=== PATIENT | female | born 1950 | race Caucasian/White ===

== ENCOUNTER 2020-07-23 05:25 | Day surgery (SDC) | payer OTHER ==
--- OUTSIDE RECORDS SUMMARY | 2020-07-10 11:58 | XMS ---
:1950 Author Organization [facility] Care Team Providers Name Role Phone Yobany Richmond Unavailable Richmond Haywood Unavailable [phone] Richmond Haywood Unavailable [phone] AIRAM SCHILLING Unavailable Unavailable GENIE GAMA Unavailable Unavailable Re-disclosure Warning The records that you are about to access may contain information from federally- assisted alcohol or drug abuse programs. If such information is present, then the following federally mandated warning applies: This information has been disclosed to you from records protected by federal confidentiality rules (42 CFR part 2). The federal rules prohibit you from making any further disclosure of this information unless further disclosure is expressly permitted by the written consent of the person to whom it pertains or as otherwise permitted by 42 CFR part 2. A general authorization for the release of medical or other information is NOT sufficient for this purpose. The Federal rules restrict any use of the information to criminally investigate or prosecute any alcohol or drug abuse patient.The records that you are about to access may contain highly sensitive health information, the redisclosure of which is protected by Article 27-F of the [facility] Public Health law. If you continue you may haveaccess to information: Regarding HIV / AIDS; Provided by facilities licensed or operated by the [facility] Office of Mental Health; or Provided by the [facility] Office for People With Developmental Disabilities. If such information is present, then the following [facility] mandated warning applies: This information has been disclosed to you from confidential records which are protected by state law. State law prohibits you from making any further disclosure of this information without the specific written consent of the person to whom it pertains, or as otherwise permitted by law. Any unauthorized further disclosure in violation of state law may result in a fine or senior care sentence or both. A general authorization for the release of medical or other information is NOT sufficient authorization for further disclosure. Allergies and Adverse Reactions Type Description Substance Reaction Status Data Source(s ) No Known No Known Allergies No Known eCW3 ( [place] Allergies Allergies [facility]) No Known No Known Allergies No Known eCW3 ( [place] Allergies Allergies [facility]) No Known No Known Allergies No Known eCW3 ( [place] Allergies Allergies [facility]) No Known No Known Allergies No known eCW3 ( [place] [facility]) No Known No Known Allergies No known eCW3 ( [place] Allergies allergies [facility]) No Known No Known Allergies No known eCW3 ( [place] Allergies allergies [facility] Care) Encounters Encounter Providers Location Date Indications Data Source(s ) Attender: Richmond 07/03/2020 MED GEN ([facility] 12:00:00 AM Medical, PC) EDT Office Outpatient Attender: GENIE Gunn 06/19/2019 [facility] ALFARO 01:10:00 PM [facility] GENIEAdmitter: GENIE PRESCOTTReferrer: AIRAM ALEGRIA Outpatient [facility] 05/10/2019 eCW3 ([facility] 12:00:[address] [facility] 05/10/2019 Care) 12:00:00 AM EDT Outpatient [facility] 02/15/2019 eCW3 ([facility] 12:00:[address] [facility] 02/15/2019 Care) 12:00:00 AM EDT Outpatient [facility] 12/28/2018 eCW3 ([facility] A28 12:00:[address] [facility] 12/28/2018 Care) 12:00:00 AM EDT Outpatient [facility] 12/16/2018 eCW3 ([facility] A28 12:00:[address] [facility] 12/16/2018 Care) 12:00:00 AM EST Outpatient [facility] 12/07/2018 eCW3 ([facility] A28 12:00:[address] [facility] 12/07/2018 Care) 12:00:00 AM EST Emergency H 12/04/2018 [facility] 09:41:00 AM EST Medical C enter Outpatient [facility] 11/30/2018 eCW3 ([facility] A28 12:00:[address] [facility] 11/30/2018 Care) 12:00:00 AM EST Medications Medication Brand Start Product Dose Route Administrative Pharmacy [facility] Indications Reaction Description Data Name Date Form Instructions Instructions Source(s) Amlodipine AMLODI 07/03/ TABLET 30 complet AMLOD IPINE MEDGEN (St 5 MG Oral PINE:1 2019 ed [facility] Tablet 90818 12:00: Medical, AMLODIPINE: 00 AM PC) [id number] EDT Bisacodyl 5 DULCOL 07/03/ DELAYED 6 complet DUL COLAX MEDGEN (St MG Delayed AX 2020 RELEASE ed LAXATIVE [facility] Release LAXATI 12:00: TABLET Medica l, Oral Tablet VE:209 00 AM PC) [Dulcolax] 613 EDT DULCOLAX LAXATIVE:20 9613 24 HR METOPR 07/03/ TABLET, 30 complet METOPROLO L MEDGEN (St metoprolol OLOL:8 2019 EXTENDED ed [facility] n's succinate 45973 12:00: RELEASE Medi brian, 25 MG 00 AM PC) Extended EDT Release Oral Tablet METOPROLOL: [id number] POLYETHYLEN GOLYTE 07/03/ POWDER 30 complet GOLY TELY MEDGEN (St E GLYCOL LY:966 2020 FOR ed [facility] 3350 60 916 12:00: RECONSTI Medica l, MG/ML / 00 AM TUTION PC) Potassium EDT Chloride 0.01 MEQ/ML / Sodium Bicarbonate 0.02 MEQ/ML / Sodium Chloride 0.025 MEQ/ML / sodium sulfate 0.04 MEQ/ML Oral Solution [Golytely] GOLYTELY:96 6916 Simvastatin SIMVAS 07/03/ TABLET 30 complet SIMV ASTATIN MEDGEN (St 40 MG Oral TATIN: 2020 ed [facility] Tablet [id number] 12:00: Medical, SIMVASTATIN 00 AM PC) :[id number] EDT Blood Blood 03/12/ active Blood eCW3 Pressure Pressu 2019 Pressure Kit ( [place] Kit - re Kit 12:00: - [place] - 00 AM Health EDT Care) Amoxicillin Amoxic .0 active Amoxici llin- eCW3 875 MG / illin- 2019 {tabl Pot ([place] Clavulanate Pot 12:00: et_wi Clavulanat e [place] 125 MG Oral Clavul 00 AM th_fo 875-125 M G Health Tablet anate EST od} Care) Amoxicillin 875-12 -Pot 5 MG Clavulanate 875-125 MG levocetiriz Levoce 12/12/ active Levocet irizi eCW3 ine tirizi 2020 ne ([place] dihydrochlo ne 12:00: Dihydrochlo r [place] ride 5 MG Dihydr 00 AM cleopatra 5 MG Hea lth Oral Tablet ochlor EST Care) Levocetiriz cleopatra 5 ine MG Dihydrochlo ride 5 MG Azelastine Azelas .0 active Azelasti ne eCW3 HCl 0.1 % soila 2019 {puff HCl 0.1 % ([facility] HCl 12:00: _in_e [place] 0.1 % 00 AM ach_n Health EST ostri Care) l} Acetaminoph Excedr 2.0 active Excedri n eCW3 en 250 MG / in 2018 {tabl Migraine ([facility] Aspirin 250 Migrai 12:00: ets} 250-250-6 5 [facility] MG / ne 00 AM MG Health Caffeine 65 250-25 EDT Care) MG Oral 0-65 Tablet MG [Excedrin] Excedrin Migraine 250-250-65 MG Aspirin 81 Aspiri 1.0 active Aspirin 81 eCW3 MG Delayed n 81 2018 {tabl 81 mg ([place] Release 81 mg 12:00: et} [place] Oral Tablet 00 AM Health Aspirin 81 EDT Care) 81 mg Blood Press Blood 12/07/ active Blood Pr ess eCW3 Monitor/M-L Press 2019 Monitor/M-L ([place] Cuff - Monito 12:00: Cuff - [place] r/M-L 00 AM Health Cuff - EST Care) Blood Press Blood 12/07/ active Blood Pr ess eCW3 Monitor/M-L Press 2019 Monitor/M-L ([place] Cuff - [place] 12:00: Cuff - [place] r/M-L 00 AM Health Cuff - EST Care) Blood Press Blood 12/07/ active Blood Pr ess eCW3 Monitor/M-L Press 2019 Monitor/M-L ([place] Cuff - [place] 12:00: Cuff - [place] r/M-L 00 AM Health Cuff - EST Care) Blood Press Blood 12/07/ active Blood Pr ess eCW3 Monitor/M-L Press 2019 Monitor/M-L ([place] Cuff - [place] 12:00: Cuff - [place] r/M-L 00 AM Health Cuff - EST Care) Blood Press Blood 12/07/ active Blood Pr ess eCW3 Monitor/M-L Press 2019 Monitor/M-L ([place] Cuff - [place] 12:00: Cuff - [place] r/M-L 00 AM Health Cuff - EST Care) Blood Press Blood 12/07/ active Blood Pr ess eCW3 Monitor/M-L Press 2019 Monitor/M-L ([place] Cuff - [place] 12:00: Cuff - [place] r/M-L 00 AM Health Cuff - EST Care) 24 HR Toprol .0 active Toprol XL 25 eCW3 metoprolol XL 2017 {tabl MG ([place] succinate MG 12:00: et} [place] 25 MG 00 AM Health Extended EDT Care) Release Oral Tablet [Toprol] Toprol XL 25 MG 24 HR Toprol .0 active Toprol XL 25 eCW3 metoprolol XL 2017 {tabl MG ([place] succinate MG 12:00: et} [place] 25 MG 00 AM Health Extended EDT Care) Release Oral Tablet [Toprol] Toprol XL 25 MG 24 HR Toprol .0 active Toprol XL 25 eCW3 metoprolol XL 2017 {tabl MG ([place] succinate MG 12:00: et} [place] 25 MG 00 AM Health Extended EDT Care) Release Oral Tablet [Toprol] Toprol XL 25 MG Simvastatin Zocor .0 active Zocor 40 MG eCW3 40 MG Oral 40 MG 2017 {tabl ([place] Tablet 12:00: et_in [place] [Zocor] 00 AM _the_ Health Zocor 40 MG EDT eveni Care) ng} Simvastatin Zocor .0 active Zocor 40 MG eCW3 40 MG Oral 40 MG 2018 {tabl ([place] Tablet 12:00: et_in [place] [Zocor] 00 AM _the_ Health Zocor 40 MG EDT eveni Care) ng} Simvastatin Zocor .0 active Zocor 40 MG eCW3 40 MG Oral 40 MG 2018 {tabl ([place] Tablet 12:00: et_in [place] [Zocor] 00 AM _the_ Health Zocor 40 MG EDT eveni Care) ng} Simvastatin Zocor 1.0 active Zocor 40 M G eCW3 40 MG Oral 40 MG {tabl ([place] Tablet et_in [place] [Zocor] _the_ [facility] Zocor 40 MG eveni Care) ng} 24 HR Toprol 1.0 active Toprol XL 25 eC W3 metoprolol XL 25 {tabl MG ([place] succinate MG et} [place] 25 MG Health Extended Care) Release Oral Tablet [Toprol] Toprol XL 25 MG Aspirin 81 Aspiri 1.0 active Aspirin 81 eCW3 MG Delayed n 81 {tabl 81 mg ([place] Release 81 mg et} [place] Oral Tablet Health Aspirin 81 Care) 81 mg 24 HR Toprol 1.0 active Toprol XL 25 eC W3 metoprolol XL 25 {tabl MG ([place] succinate MG et} [place] 25 MG Health Extended Care) Release Oral Tablet [Toprol] Toprol XL 25 MG 24 HR Toprol 1.0 active Toprol XL 25 eC W3 metoprolol XL 25 {tabl MG ([place] succinate MG et} [place] 25 MG Health Extended Care) Release Oral Tablet [Toprol] Toprol XL 25 MG Simvastatin Zocor 1.0 active Zocor 40 M G eCW3 40 MG Oral 40 MG {tabl ([place] Tablet et_in [place] [Zocor] _the_ Health Zocor 40 MG eveni Care) ng} Aspirin 81 Aspiri 1.0 active Aspirin 81 eCW3 MG Delayed n 81 {tabl 81 mg ([place] Release 81 mg et} [place] Oral Tablet Health Aspirin 81 Care) 81 mg Aspirin 81 Aspiri 1.0 active Aspirin 81 eCW3 MG Delayed n 81 {tabl 81 mg ([place] Release 81 mg et} [place] Oral Tablet Health Aspirin 81 Care) 81 mg Simvastatin Zocor 1.0 active Zocor 40 M G eCW3 40 MG Oral 40 MG {tabl ([place] Tablet et_in [place] [Zocor] _the_ Health Zocor 40 MG eveni Care) ng} Amlodipine Amlodi 1.0 active Amlodipine eCW3 5 MG Oral pine {tabl Besylate 5 (Hu dson Tablet Besyla et} MG [place] Amlodipine te 5 Health Besylate 5 MG Care) MG Insurance Providers Payer name Policy type Policy ID Covered Covered green party's Policy P juliana / Coverage green party ID relationship to [place] Inf ormation type richardson MEDICAID OF [id number] [facility] [id number] CLAIMS DC MEDICARE [id number] PART B [facility] MEDICAID [id number] SP [id number] UNHC DC DUAL [id number] SP [id number] COMPLETE [place] [id number] 01 [id number] HEALTHCARE MCARE OPD W [id number] ISMA W [id number] 01 [id number] [place] O [id number] 01 [id number] HEALTHCARE MCARE OPD [place] [facility] [id number] S [id number] [place] Medicaid [id number] S [id number] Regular Clinic Visit Dental [id number] S [id number] Dentaquest MKD Elio Vision [id number] S [id number] Isma Family [id number] S [id number] Planning MKD & EP 3 & 4 Only Problems, Conditions, and Diagnoses Code Display Name Description Problem Type Effective Data Dates Source(s) Z86.010 Personal history PERSONAL HISTORY Problem 07/03/2020 ME DGEN (St of colonic polyps OF COLONIC POLYPS 12:00:00 AM [facility], ) K63.5 Polyp of colon, Polyp of colon, Problem 08/23/2019 eCW3 ([place] unspecified part unspecified part 12:00:00 AM edy Health of colon, of colon, EST Care) unspecified type unspecified type G44.229 Chronic Chronic Problem 05/10/2019 eCW3 ([place] tension-type tension-type 12:00:00 AM [facility] lt headache, not headache, not EDT Care) intractable intractable G44.229 Chronic Chronic Problem 05/10/2019 eCW3 ([place] tension-type tension-type 12:00:00 AM [facility] headache, not headache, not EDT Care) intractable intractable M25.511 Pain in right Pain in right Problem 02/15/2019 eCW3 ([facility] shoulder shoulder 12:00:00 AM [facility] EDT Care) Z78.9 Uses Surinamese as Uses Surinamese as Problem 02/15/2019 eCW3 ([place] primary spoken primary spoken 12:00:00 [facility] EDT Care) M25.511 Pain in right Pain in right Problem 02/15/2019 eCW3 ([facility] shoulder shoulder 12:00:00 AM [facility] EDT Care) M25.511 Pain in right Pain in right Problem 02/15/2019 eCW3 ([facility] shoulder shoulder 12:00:00 AM [facility] EDT Care) Z78.9 Uses Surinamese as Uses Surinamese as Problem 02/15/2019 eCW3 ([place] primary spoken primary spoken 12:00:00 AM [facility] language language EDT Care) A63.0 Anogenital warts High risk HPV Problem 12/09/2018 eCW3 ([place] infection 12:00:00 AM [facility] EST Care) A63.0 Anogenital warts High risk HPV Problem 12/09/2018 eCW3 ([place] infection 12:00:00 AM [facility] EST Care) A63.0 Anogenital warts High risk HPV Problem 12/09/2018 eCW3 ([place] infection 12:00:00 AM [facility] EST Care) A63.0 Anogenital warts High risk HPV Problem 12/09/2018 eCW3 ([place] infection 12:00:00 AM [facility] EST Care) I10 Essential Essential Problem 11/30/2018 eCW3 ([place] hypertension hypertension 12:00:00 AM [facility] EST Care) I10 Essential Essential Problem 11/30/2018 eCW3 ([place] hypertension hypertension 12:00:00 AM [facility] EST Care) N39.41 Urge incontinence Urge incontinence Problem 12/18/2016 eCW3 ([place] of urine of urine 12:00:00 [facility] EST Care) N39.41 Urge incontinence Urge incontinence Problem 12/18/2016 eCW3 ([place] of urine of urine 12:00:00 [facility] EST Care) K76.0 Fatty liver Fatty liver Problem 12/05/2016 eCW3 ([place] 12:00:00 AM [facility] EST Care) R31.29 Microscopic Microscopic Problem 12/05/2016 eCW3 ([place] hematuria hematuria 12:00:00 AM [facility] EST Care) R31.29 Microscopic Microscopic Problem 12/05/2016 eCW3 ([place] hematuria hematuria 12:00:00 AM [place] [facility] EST Care) K76.0 Fatty liver Fatty liver Problem 12/05/2016 eCW3 ([place] 12:00:00 [facility] EST Care) R35.1 Nocturia Nocturia Problem 12/04/2016 eCW3 ([place] 12:00:00 [facility] EST Care) R35.1 Nocturia Nocturia Problem 12/04/2016 eCW3 ([place] 12:00:00 [facility] EST Care) R35.1 Nocturia Nocturia Problem 12/04/2016 eCW3 ([place] 12:00:00 [facility] EST Care) M54.16 Lumbar Lumbar Problem 08/02/2015 eCW3 ([place] radiculopathy radiculopathy 12:00:00 [facility] M54.16 Lumbar Lumbar Problem 08/02/2015 eCW3 ([place] radiculopathy radiculopathy 12:00:00 AM [facility]) M54.16 Lumbar Lumbar Problem 08/02/2015 eCW3 ([place] radiculopathy radiculopathy 12:00:00 AM [facility]) M54.16 Lumbar Lumbar Problem 08/02/2015 eCW3 ([place] radiculopathy radiculopathy 12:00:00 AM [facility]) E55.9 Vitamin D Vitamin D Problem 07/26/2015 eCW3 ([place] deficiency deficiency 12:00:00 [facility] EDT [facility]) E78.5 Dyslipidemia Dyslipidemia Problem 07/26/2015 eCW3 ([facility] EDT Care) M85.80 Osteopenia Osteopenia Problem 07/26/2015 eCW3 ([place] 12:00:00 [facility] EDT Care) M85.80 Osteopenia Osteopenia Problem 07/26/2015 eCW3 ([place] 12:00:00 [facility] EDT Care) E55.9 Vitamin D Vitamin D Problem 07/26/2015 eCW3 ([place] deficiency deficiency 12:00:00 AM [facility] EDT Care) E78.5 Dyslipidemia Dyslipidemia Problem 07/26/2015 eCW3 ([facility] 12:[facility] EDT Care) E78.5 Dyslipidemia Dyslipidemia Problem 07/26/2015 eCW3 ([facility] 12:[facility] EDT Care) M85.80 Osteopenia Osteopenia Problem 07/26/2015 eCW3 ([place] 12:00:00 [facility] EDT Care) E55.9 Vitamin D Vitamin D Problem 07/26/2015 eCW3 ([place] deficiency deficiency 12:00:00 AM [facility] EDT Care) M25.511 Pain in right PAIN IN RIGHT Diagnosis 06/19/2019 [facility] shoulder SHOULDER 01:10:00 PM Medical EDT Center H57.10 Ocular pain, OCULAR PAIN, Diagnosis 12/04/2018 [facility] unspecified eye UNSPECIFIED EYE 09:41:00 AM Med ical EST Center H57.11 Ocular pain, right OCULAR PAIN, RIGHT Diagnosis 9 [facility] eye EYE 09:41:00 AM Medical EST Center R40.2410 Steve coma scale STEVE COMA SCALE Diagnosis 9 [facility] score 13-15, SCORE 13-15, 09:41:00 AM Medical unspecified time UNSPECIFIED TIME EST Ce nter I10 Essential ESSENTIAL Diagnosis 12/04/2018 [facility] (primary) (PRIMARY) 09:41:00 AM Medical hypertension HYPERTENSION EST Center Surgeries/Procedures Procedure Description Date Indications Data Source(s) Documentation of current 07/03/2020 MED GEN ([facility] medications (procedure) 12:00:00 AM EDT [facility]) OFFICE OUTPATIENT NEW 30 07/03/2020 MED GEN ([facility] MINUTES 12:00:00 AM EDT Medical, PC) Results ID Date Data Source [id number] 06/27/2020 09:28:00 PM EDT [facility] Name Value Range Interpretation Code Description Data Kari rce(s) Supporting Document(s ) SARS-COV-2 [facility] This lab was ordered by [facility] and reported by [facility]. ID Date Data Source [id number] 05/31/2020 04:08:00 PM EDT [facility] Name Value Range Interpretation Code Description Data Kari rce(s) Supporting Document(s ) SARS-CoV-2 [facility] PCR This lab was ordered by [facility] and reported by [facility]. ID Date Data Source [id number] 04/23/2020 10:15:00 PM EDT [facility] Name Value Range Interpretation Code Description Data Kari rce(s) Supporting Document(s ) SARS-COV-2 [facility] This lab was ordered by [facility] and reported by [facility]. Procedure Social History Code Duration Value Status Description Data Source(s ) Smoking 07/03/2020 Born in [facility] completed Born in [facility] MEDGEN (St 12:00:00 AM EDT [place]ame [place] [facility] [place] Non Non Smokers Non Smokers Non Drinker No Drug Drinker No Drug use use Smoking 07/03/2020 Unknown if ever completed Unknown if ever MEDG EN (St 12:00:00 AM EDT smoked smoked [facility] jennifer, ) Smoking 03/12/2020 Never Smoker completed Never Smoker eCW3 ([facility] 12:00:00 AM EDT [facility]) Smoking 12/16/2019 Never Smoker completed Never Smoker eCW3 ([facility] 12:00:00 AM EST [facility]) Smoking 05/10/2019 Never Smoker completed Never Smoker eCW3 ([facility] 12:00:00 AM T [facility]) Smoking 02/15/2019 Never Smoker completed Never Smoker eCW3 ([facility] 12:00:00 AM [facility]) Smoking 12/28/2018 Never Smoker completed Never Smoker eCW3 ([facility] 12:00:00 AM [facility]) Smoking 12/28/2018 Never Smoker completed Never Smoker eCW3 ([facility] 12:00:00 AM EDT [facility]) Smoking 12/04/2018 Denies Ever completed Denies Ever Smoked [facility] 11:19:00 AM EST Smoked Medical C enter Smoking 12/04/2018 Denies Ever completed Denies Ever Smoked [facility] 09:45:00 AM EST Smoked Medical C enter Smoking Unknown if ever completed Unknown if ever Ashely romelia [facility] smoked smoked [facility] Never Smoker completed Never Smoker eCW3 ([facility]) Never Smoker completed Never Smoker eCW3 ([facility]) Never Smoker completed Never Smoker eCW3 ([facility]) Never Smoker completed Never Smoker eCW3 ([facility]) Never Smoker completed Never Smoker eCW3 ([facility]) Never Smoker completed Never Smoker eCW3 ([facility]) Vital Signs ID Date Data Source UNK Name Value Range Interpretation Code Description Data Source(s) Heart rate 76 /min 76 /min MEDGEN ([facility] , ) Inhaled oxygen 98 % 98 % MEDGEN ([facility], ) Body mass index 28.9 kg/m2 28.9 kg/m2 MEDGEN (S (BMI) [Ratio] [facility]) Diastolic blood 68 mm[Hg] 68 mm[Hg] MEDGEN ([facility]) Systolic blood 122 mm[Hg] 122 mm[Hg] MEDGEN ([facility]) Body weight 163 lb 163 lb MEDGEN ([facility]) Body height 63 in 63 in MEDGEN ([facility]) Diastolic blood 73 mm[Hg] 73 mm[Hg] eCW3 ([facility]) Systolic blood 124 mm[Hg] 124 mm[Hg] eCW3 ([facility]) Body temperature 98.2 [degF] 98.2 [degF] eCW3 ( [facility]) Body mass index 27.28 kg/m2 27.28 kg/m2 eCW3 (H ud[facility] (BMI) [Ratio] [facility]) Body weight 154 [lb_av] 154 [lb_av] eCW3 ([facility]) Body height 63 [in_i] 63 [in_i] eCW3 ([facility]) Diastolic blood 59 mm[Hg] 59 mm[Hg] eCW3 ([facility]) Systolic blood 121 mm[Hg] 121 mm[Hg] eCW3 ([facility]) Body temperature 98.0 [degF] 98.0 [degF] eCW3 ( [facility]) Body mass index 26.75 kg/m2 26.75 kg/m2 eCW3 ([facility] ud[facility] (BMI) [Ratio] [facility]) Body weight 151 [lb_av] 151 [lb_av] eCW3 ([facility]) Body height 63 [in_i] 63 [in_i] eCW3 ([facility]) Diastolic blood 76 mm[Hg] 76 mm[Hg] eCW3 ([facility]) Systolic blood 137 mm[Hg] 137 mm[Hg] eCW3 ([facility]) Body temperature 98.5 [degF] 98.5 [degF] eCW3 ( [facility]) Heart rate 20 /min 20 /min eCW3 ([facility]) Body mass index 27.35 kg/m2 27.35 kg/m2 eCW3 ([facility] (BMI) [Ratio] [facility]) Body weight 154.4 154.4 [lb_av] eCW3 ([facility] on [lb_av] [facility]) Body height 63 [in_i] 63 [in_i] eCW3 ([facility]) Diastolic blood 81 mm[Hg] 81 mm[Hg] eCW3 ([facility]) Systolic blood 144 mm[Hg] 144 mm[Hg] eCW3 ([facility]) Body temperature 98.2 [degF] 98.2 [degF] eCW3 ( [facility]) Heart rate 20 /min 20 /min eCW3 ([facility]) Body mass index 27.77 kg/m2 27.77 kg/m2 eCW3 ([facility] (BMI) [Ratio] [facility]) Body weight 156.8 156.8 [lb_av] eCW3 ([facility] on [lb_av] [facility]) Body height 63 [in_i] 63 [in_i] eCW3 ([facility]) Diastolic blood 68 mm[Hg] 68 mm[Hg] eCW3 ([facility]) Systolic blood 134 mm[Hg] 134 mm[Hg] eCW3 ([facility]) Body temperature 97.8 [degF] 97.8 [degF] eCW3 ( [facility]) Body mass index 27.67 kg/m2 27.67 kg/m2 eCW3 (H udson (BMI) [Ratio] [facility]) Body weight 156.2 156.2 [lb_av] eCW3 ([facility] on [lb_av] [facility]) Body height 63 [in_i] 63 [in_i] eCW3 ([facility]) Body mass index 25.6 kg/m2 25.6 kg/m2 [facility] (BMI) [Ratio] Medical [facility] ter Systolic blood 138 mm[Hg] 138 mm[Hg] [facility] Diastolic blood 79 mm[Hg] 79 mm[Hg] [facility] Body height 165.089341 165.906676 cm [facility] [facility] Heart rate 76 /min 76 /min [facility] Oxygen saturation 98 % 98 % [facility] Arterial blood [facility] by Pulse oximetry Respiratory rate 17 /min 17 /min [facility] Body temperature 36.945834 36.282042 [facility] Body weight 70.578106 70.799421 kg [facility] hs Measured kg [facility] Diastolic blood 78 mm[Hg] 78 mm[Hg] eCW3 ([facility]) Systolic blood 150 mm[Hg] 150 mm[Hg] eCW3 ([facility]) Body temperature 98.0 [degF] 98.0 [degF] eCW3 ( [facility]) Body mass index 27.63 kg/m2 27.63 kg/m2 eCW3 ([facility] (BMI) [Ratio] [facility]) Body weight 156 [lb_av] 156 [lb_av] eCW3 ([facility]) Body height 63 [in_i] 63 [in_i] eCW3 ([facility]) Patient Treatment Plan of Care Planned Activity Planned Date Details Description Data Source (s) Blood Pressure Kit - 03/12/2020 eCW3 ([place] 12:00:00 AM [facility]) Azelastine HCl 0.1 % 12/13/2019 eCW3 ([place] 12:00:00 AM [facility]) levocetirizine 12/13/2019 eCW3 ([place] dihydrochloride 5 MG Oral 12:00:00 AM [facility]) Tablet Amoxicillin 875 MG / 12/13/2019 [facility] Clavulanate 125 MG Oral 12:00:00 AM [facility]) Tablet Acetaminophen 250 MG / 05/10/2019 eCW3 ([place] Aspirin 250 MG / Caffeine 12:00:00 AM [facility]) 65 MG Oral Tablet [Excedrin] Aspirin 81 MG Delayed 02/15/2019 eCW3 ( [place] Release Oral Tablet 12:00:00 AM [facility]) Simvastatin 40 MG Oral 04/20/2018 eCW3 ([place] Tablet [Zocor] 12:00:00 AM [facility] e) 24 HR metoprolol succinate 04/20/2018 e CW3 ([place] 25 MG Extended Release Oral 12:00:00 AM [facility]) Tablet [Toprol] 24 HR metoprolol succinate 04/20/2018 e CW3 ([place] 25 MG Extended Release Oral 12:00:00 AM [facility]) Tablet [Toprol] Aspirin 81 MG Delayed eCW3 ( [place] Release Oral Tablet Health C are) 24 HR metoprolol succinate e CW3 ([place] 25 MG Extended Release [facility]) Tablet [Toprol] Amlodipine 5 MG Oral Tablet eCW3 ([facility]) Simvastatin 40 MG Oral eCW3 ([place] Tablet [Zocor] Health Care) Simvastatin 40 MG Oral eCW3 ([place] Tablet [Zocor] Health Care) 24 HR metoprolol succinate e CW3 ([place] 25 MG Extended Release [facility]) Tablet [Toprol] Aspirin 81 MG Delayed eCW3 ( [place] Release Oral Tablet Health C are)
[2020-07-17 15:02] VITALS: BMI 28.8
--- OUTSIDE RECORDS SUMMARY | 2020-07-23 05:28 | XMS ---
:1950 Author Organization [facility] Care Team Providers Name Role Phone Manuel Haywooder Unavailable [phone] DiGdebrano, Christopher Unavailable [phone] DiGguille, Christopher Unavailable [phone] AIRAM WATSON Unavailable Unavailable GENIE GAMA Unavailable Unavailable Re-disclosure [...] is protected by Article 27-F of the [place] State Public Health law. If you continue you may haveaccess to information: Regarding HIV / AIDS; Provided by facilities licensed or operated by the [facility] Office of Mental Health; or Provided by the [facility] Office for People With Developmental Disabilities. If such information is present, then the following [facility] mandated warning applies: This information has [...] law may result in a fine or group home sentence or both. A general authorization for the release of medical or other information is NOT sufficient authorization for further disclosure. Encounters Encounter Providers Location Date Indications Data Source(s ) Attender: [place] 07/03/2020 MED GEN ([facility] 12:00:00 AM Medical, ) EDT Office Outpatient [facility] 08/23/2019 12:00:00 e CW3 ([facility] A28 AM EST - 08/23/2019 [facility] 12:00:00 AM EST Care) Outpatient Attender: GENIE Gunn 06/19/2019 01:10:00 [facility] EDT Medical Andreas PRESCOTTAdmitter: GENIE PRESCOTTReferrer: AIRAM WATSON Medications Medication Brand Start Product Dose Route Administrative Pharmacy [facility] Indications Reaction Description Data Name Date Form Instructions Instructions Source(s) 24 HR METOPR 07/03/ TABLET, 30 complet METOPROLO L MEDGEN (St metoprolol OLOL:8 2019 EXTENDED ed [facility] n's succinate 10553 12:00: RELEASE Medi brian, 25 MG 00 AM ) Extended EDT Release Oral Tablet METOPROLOL: [id number] POLYETHYLEN GOLYTE 07/03/ POWDER 30 complet GOLY TELY MEDGEN (St E GLYCOL LY:966 2019 FOR ed [facility] 3350 60 916 12:00: RECONSTI Medica l, MG/ML / 00 AM TUTION PC) Potassium EDT Chloride 0.01 MEQ/ML / Sodium Bicarbonate 0.02 MEQ/ML / Sodium Chloride 0.025 MEQ/ML / sodium sulfate 0.04 MEQ/ML Oral Solution [Golytely] GOLYTELY:96 6916 Simvastatin SIMVAS 09/23/ TABLET 30 complet SIMV ASTATIN MEDGEN (St 40 MG Oral TATIN: 2020 ed [facility] Tablet [id number] 12:00: Medical, SIMVASTATIN 00 AM PC) :[id number] EDT Amlodipine AMLODI 07/03/ TABLET 30 complet AMLOD IPINE MEDGEN (St 5 MG Oral PINE:1 2019 ed [facility] Tablet 10491 12:00: Medical, AMLODIPINE: 00 AM PC) [id number] EDT Bisacodyl 5 DULCOL 07/03/ DELAYED 6 complet DUL COLAX MEDGEN (St MG Delayed AX 2020 RELEASE ed LAXATIVE [facility] Release LAXATI 12:00: TABLET Medica l, Oral Tablet VE:209 00 AM PC) [Dulcolax] 613 EDT DULCOLAX LAXATIVE:20 9613 Blood Blood 03/12/ active Blood eCW3 Pressure Pressu 2020 Pressure Kit ( UniQure Kit - re Kit 12:00: - [place] - 00 AM Health EDT Care) Blood Blood 03/12/ active Blood eCW3 Pressure Pressu 2020 Pressure Kit ( [place] Kit - re Kit 12:00: - [place] - 00 AM Health EDT Care) Amoxicillin Amoxic .0 active Amoxici llin- eCW3 875 MG / illin- 2020 {tabl Pot ([place] Clavulanate Pot 12:00: et_wi [...] MG Dihydrochlo ride 5 MG Azelastine Azelas 1.0 active Azelasti ne eCW3 HCl 0.1 % soila 2019 {puff HCl 0.1 % ([facility] son HCl 12:00: _in_e [place] 0.1 % 00 AM ach_n Health EST ostri Care) l} Acetaminoph Excedr 05/10/ 2.0 active Excedri n eCW3 en 250 MG / in 2019 {tabl Migraine (Hu dson Aspirin 250 Migrai [...] Health Aspirin 81 EDT Care) 81 mg Insurance Providers Payer name Policy type Policy ID Covered Covered green party's Policy P juliana / Coverage green party ID relationship to [place] [facility] ormation type richardson [employer] [id number] SP [id number] MEDICARE MEDICAID [id number] SP [id number] MEDICAID OF [id number] [facility] [id number] CLAIMS [place] MEDICARE [id number] 1 [id number] PART B DOWNSTATE [place] [id number] SP [id number] COMPLETE [place] [id number] 01 [id number] HEALTHCARE MCARE OPD W [id number] ISMA W [id number] 01 [id number] [place] [id number] 01 [id number] HEALTHCARE MCARE OPD New Site Care [id number] S [id number] [place] Medicaid [id number] S [id number] Regular Clinic Visit Dental [id number] S [id number] Dentaquest MKD Elio Vision [id number] S [id number] Isma Family [id number] S [id number] Planning MKD & EP 3 & 4 Only Problems, Conditions, and Diagnoses Code Display Name Description Problem Type Effective Dates Data Source(s) Z86.010 Personal history PERSONAL HISTORY Problem 07/03/2020 ME DGEN (St of colonic polyps OF COLONIC POLYPS 12:00:00 AM EDT [facility], ) 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 Problem 05/21/2020 eCW3 ([facility] infection infection 12:00:00 AM EDT [facility]) K63.5 Polyp of colon, Polyp of colon, Problem 08/23/2019 eCW3 ([place] unspecified part unspecified part 12:00:00 AM E [facility] of colon, of colon, Care) unspecified type unspecified type K63.5 Polyp of colon, Polyp of colon, Problem 08/23/2019 eCW3 ([place] unspecified part unspecified part 12:00:00 AM E [facility] of colon, of colon, Care) unspecified type unspecified type M25.511 Pain in right PAIN IN RIGHT Diagnosis 06/19/2019 [facility] shoulder SHOULDER 01:10:00 PM EDT Medical C enter Surgeries/Procedures Procedure Description Date Indications Data Source(s) Documentation of current 07/03/2020 MED GEN ([facility] medications (procedure) 12:00:00 AM EDT [facility]) OFFICE OUTPATIENT NEW 30 07/03/2020 MED GEN ([facility] MINUTES 12:00:00 AM EDT Medical, PC) Results ID Date Data Source [id number] 07/18/2020 09:03:00 AM EDT [facility] Name Value Range Interpretation Description Data Sup porting Code Source(s) Document(s ) SARS [facility] coronavirus 2 RNA This lab was ordered by [facility] and reported by [facility]. ID Date Data Source [id number] 06/27/2020 09:28:00 PM EDT [facility] Name Value Range Interpretation Code Description Data Kari rce(s) Supporting Document(s ) SARS-COV-2 [facility] This lab was ordered by [facility] and reported by [facility]. ID Date Data Source [id number] 05/31/2020 04:08:00 PM EDT [facility] Name Value Range Interpretation Code Description Data Kari rce(s) Supporting Document(s ) SARS-CoV-2 [facility] PCR This lab was ordered by [facility] and reported by [facility]. ID Date Data Source [id number] 04/23/2020 10:15:00 PM EDT [facility] Name Value Range Interpretation Code Description Data Kari rce(s) Supporting Document(s ) SARS-COV-2 [facility] This lab was ordered by [facility] and reported by [facility]. Procedure Social History Code Duration Value Status Description Data Source(s ) Smoking 07/03/2020 Born in [place] completed Born in [place] MEDGEN (St 12:00:00 AM EDT [place] Came to [place]. Cam e to [facility] Non Non Smokers Non Smokers Non Drinker No Drug Drinker No Drug use use Smoking 07/03/2020 Unknown if ever completed Unknown if ever MEDG EN (St 12:00:00 AM EDT smoked smoked [facility], ) Smoking 05/21/2020 Never Smoker completed Never Smoker [facility]CW[facility] Smoking 03/12/2020 Never Smoker completed Never Smoker eCW3 ([facility] 12:00:00 AM [facility]) Smoking 12/16/2019 Never Smoker completed Never Smoker eCW3 ([facility] 12:00:00 AM EST [facility]) Vital Signs ID Date Data Source UNK Name Value Range Interpretation Code Description Data Source(s) Heart rate 76 /min 76 /min [facility] ) Inhaled oxygen 98 % 98 % MEDGEN ([facility]) Body mass index 28.9 kg/m2 28.9 kg/m2 MEDGEN (S (BMI) [Ratio] [facility]) Diastolic blood 68 mm[Hg] 68 mm[Hg] MEDGEN (S t [facility]) Systolic blood 122 mm[Hg] 122 mm[Hg] MEDGEN ([facility]) Body weight 163 lb 163 lb MEDGEN ([facility]) Body height 63 in 63 in MEDGEN ([facility]) Diastolic blood 72 mm[Hg] 72 mm[Hg] eCW3 ([facility]) Systolic blood 127 mm[Hg] 127 mm[Hg] [facility]CW[facility]) Body temperature 97.7 [degF] 97.7 [degF] eCW3 ( [facility]) Body mass index 27.28 kg/m2 27.28 kg/m2 eCW3 ([facility] (BMI) [Ratio] [place] [facility]) Body weight 154 [lb_av] 154 [lb_av] eCW3 ([facility]) Body height 63 [in_i] 63 [in_i] eCW3 ([facility]) Patient Treatment Plan of Care Planned Activity Planned Date Details Description Data Source (s) Blood Pressure Kit - 03/12/2020 eCW3 ([facility] 12:00:00 AM [facility]) Azelastine HCl 0.1 % 12/13/2019 eCW3 ([facility] 12:00:00 AM [facility]) levocetirizine 12/13/2019 eCW3 ([facility] dihydrochloride 5 MG Oral 12:00:00 AM [facility]) Tablet Amoxicillin 875 MG / 12/13/2019 eCW3 ([facility] Clavulanate 125 MG Oral 12:00:00 AM [facility]) Tablet Acetaminophen 250 MG / 05/10/2019 eCW3 ([facility] Aspirin 250 MG / Caffeine 12:00:00 AM [facility]) 65 MG Oral Tablet [Excedrin] Aspirin 81 MG Delayed 02/15/2019 eCW3 ( [facility] Release Oral Tablet 12:00:00 AM [facility])
[2020-07-23 10:38] VITALS: TEMP 98.3
[2020-07-23 10:46] VITALS: BP 122/61
[2020-07-23 11:19] VITALS: PULSE 67
--- NOTE | 2020-07-24 17:32 | PATH ---
Surgical Pathology Report Patient Name: YENNIFER GARCIA [facility]. Rec. #: [id number] /Age/Gender: 1950 (Age: 69) / F Account: [id number] Location: U-ENDOSCOPY Taken: 07/23/2020 Received: 07/23/2020 Reported: 07/24/2020 Physicians: Richmond Haywood D.O. Specimen(s) Received A: DESCENDING COLON POLYP B: SIGMOID POLYP C: RECTAL POLYP Clinical History Colon polyps Postoperative diagnosis: Diverticulosis, colon polyps Final Diagnosis A. DESCENDING COLON, POLYP, BIOPSY: TUBULAR ADENOMA. B. SIGMOID COLON, POLYP, BIOPSY: POLYPOID COLONIC MUCOSA WITH FOCAL ACTIVE COLITIS. SEE COMMENT. C. RECTAL POLYP, BIOPSY: TUBULAR ADENOMA. Comment: Part B, Findings are non-specific. Although acute self-limited colitis is a consideration, among other conditions, the possibility of early inflammatory bowel disease cannot be completely excluded. Suggest clinical/endoscopic correlation. Electronically Signed Clair Salinas M.D. Gross Description A. Received in formalin, labeled "descending colon polyp" are 3 lindsey, irregular portions of soft tissue ranging from 0.1-0.3 cm. in greatest dimension. The specimens are submitted in toto in one cassette. B. Received in formalin, labeled "sigmoid polyp" is a lindsey, irregular portion of soft tissue measuring 0.1 cm. in greatest dimension. The specimen is submitted in toto in one cassette. C. Received in formalin, labeled "rectal polyp" are 4 lindsey, irregular portions of soft tissue ranging from 0.1-0.3 cm. in greatest dimension. The specimens are submitted in toto in one cassette. DL/07/23/2020 saudi/07/23/2020
== END 2020-07-23 11:14 | disposition home or self-care (01) ==
LOC: JASU-ENDO 05:25
PROVIDERS: ATTEND Internal Medicine Gastroenterology
PROC: 0DBN8ZX Excision of Sigmoid Colon, Via Natural or Artificial Opening Endoscopic, Diagnostic (ICD-10-PCS; 2020-07-23)
PROC: 0DBP8ZX Excision of Rectum, Via Natural or Artificial Opening Endoscopic, Diagnostic (ICD-10-PCS; 2020-07-23)
PROC: 0DBM8ZX Excision of Descending Colon, Via Natural or Artificial Opening Endoscopic, Diagnostic (ICD-10-PCS; principal; 2020-07-23 10:00)
DX: Z12.11 Encounter for screening for malignant neoplasm of colon (principal); K62.1 Rectal polyp; D12.4 Benign neoplasm of descending colon; D12.5 Benign neoplasm of sigmoid colon; K57.30 Diverticulosis of large intestine without perforation or abscess without bleeding; K64.8 Other hemorrhoids; Z86.010 Personal history of colon polyps
CPT/HCPCS: 88305-TC

== ENCOUNTER 2022-06-01 12:50 | Emergency (ER) | payer OTHER ==
[2022-06-01 13:45] VITALS: BP 144/84; PULSE 69; RESP 18; TEMP 97.9; BMI 25.3
[2022-06-01] MEDS ORDERED: IBUPROFEN 600 MG TABLET (FP) PO ONE ×2 (14:22→14:25)
[2022-06-01] MEDS ORDERED: METHOCARBAMOL 500 MG TABLET PO ONE (14:22)
[2022-06-01] MEDS ORDERED: METHOCARBAMOL 500 MG TABLET ONE (14:25)
== END 2022-06-01 15:59 | disposition home or self-care (01) ==
LOC: JERFT 12:50
DX: M79.601 Pain in right arm (principal); V89.2XXA Person injured in unspecified motor-vehicle accident, traffic, initial encounter; Y92.9 Unspecified place or not applicable
CPT/HCPCS: 73030-TC-RT-FY; 73060-TC-RT-FY; 99284-25

== ENCOUNTER 2024-06-01 14:06 | Emergency (ER) | payer OTHER ==
[2024-06-01 14:21] VITALS: BP 126/74; PULSE 74; RESP 18; TEMP 98.4; BMI 28.7
[2024-06-01 14:55] LABS: BASO % 0.8 % (0-2.0); EOS % 4.2 % (0-4.5); HEMATOCRIT 39.1 % (32.4-45.2); HEMOGLOBIN 13.5 GM/dL (10.7-15.3); LYMPH % 21.6 % (8-40); MCH 32.5 pg (25.7-33.7); MCHC 34.5 g/dl (32.0-36.0); MEAN CELL VOLUME 94.2 fl (80-96); MEAN PLT VOLUME 7.8 fl (7.5-11.1); MONO % 8.1 % (3.8-10.2); NEUT % 65.3 % (42.8-82.8); PLATELET COUNT 361 10^3/uL (134-434); RBC 4.15 M/mm3 (3.60-5.2); RDW 13.3 % (11.6-15.6); WHITE BLOOD COUNT 6.8 K/mm3 (4.0-10.0)
[2024-06-01 15:25] LABS: POTASSIUM 3.8 mmol/L (3.5-5.1)
[2024-06-01 15:27] LABS: CALCIUM 9.3 mg/dL (8.5-10.1)
[2024-06-01 15:28] LABS: BLOOD UREA NITROGEN 17.4 mg/dL (7-18)
[2024-06-01 15:32] LABS: BILIRUBIN,TOTAL 1.1 mg/dL (0.2-1)
[2024-06-01 15:36] LABS: N-TERMINAL BNP 696.4 pg/ml (5-125)
== END 2024-06-01 17:24 | disposition home or self-care (01) ==
LOC: JERFT 14:06
DX: R60.0 Localized edema (principal); M71.22 Synovial cyst of popliteal space [Baker], left knee; M71.21 Synovial cyst of popliteal space [Baker], right knee
CPT/HCPCS: 36415; 71046-TC-FY; 80053; 83880; 85025; 93005; 93010; 93970-TC; 99285-25

== ENCOUNTER 2025-01-04 06:25 | Day surgery (SDC) | payer OTHER ==
[2025-01-02 11:00] VITALS: BMI 29.2
[2025-01-04 08:25] VITALS: RESP 16; TEMP 98.2
[2025-01-04 09:06] VITALS: BP 115/64; PULSE 72
== END 2025-01-04 09:16 | disposition home or self-care (01) ==
LOC: JASU-ENDO 06:25
PROVIDERS: ATTEND Internal Medicine Gastroenterology
PROC: 0DBL8ZX Excision of Transverse Colon, Via Natural or Artificial Opening Endoscopic, Diagnostic (ICD-10-PCS; 2025-01-04)
PROC: 0DBK8ZX Excision of Ascending Colon, Via Natural or Artificial Opening Endoscopic, Diagnostic (ICD-10-PCS; principal; 2025-01-04 08:00)
DX: Z12.11 Encounter for screening for malignant neoplasm of colon (principal); D12.3 Benign neoplasm of transverse colon; K64.8 Other hemorrhoids; K57.30 Diverticulosis of large intestine without perforation or abscess without bleeding; Z86.0100 Personal history of colon polyps, unspecified; K52.9 Noninfective gastroenteritis and colitis, unspecified
CPT/HCPCS: 88305-TC

== ENCOUNTER 2025-01-05 15:55 | Observation (INO) | payer OTHER ==
[2025-01-05] MEDS ORDERED: ONDANSETRON 4 MG/2 ML VIAL ONE (16:24)
[2025-01-05] MEDS: SODIUM CHLORIDE 500 ML IV STA (16:44)
[2025-01-05] MEDS: ONDANSETRON 4 MG/2 ML VIAL IVPUSH ONE (16:44)
[2025-01-05 16:46] LABS: ABSOLUTE IMMATURE GRANULOCYTES 0.02 x10^3/uL (0.0-0.031); BASOPHILS # 0.07 x10^3/uL (0.01-0.08); EOSINOPHIL % 0.4 % (0.7-5.8); EOSINOPHILS # 0.02 x10^3/uL (0.04-0.36); HEMATOCRIT 44.5 % (34.1-44.9); HEMOGLOBIN 14.5 g/dL (11.2-15.7); MCHC 32.6 g/dl (32.2-35.5); MEAN CELL VOLUME 92.1 fl (79.4-94.8); MEAN PLT VOLUME 9.7 fl (9.4-12.3); MONOCYTE # 0.55 x10^3/uL (0.24-0.86); MONOCYTE % 10.7 % (4.7-12.5); PLATELET COUNT 300 x10^3/uL (182-369); RDW 12.4 % (12.4-16.6)
[2025-01-05 16:55] LABS: INR 1.22 (0.83-1.09); PROTHROMBIN TIME (PATIENT) 13.4 SEC (9.7-13.0)
[2025-01-05 17:39] LABS: POTASSIUM 3.5 mmol/L (3.5-5.1)
[2025-01-05 17:42] LABS: ALBUMIN 3.7 g/dl (3.4-5.0); BLOOD UREA NITROGEN 15.8 mg/dL (7-18); CALCIUM 8.8 mg/dL (8.5-10.1); MAGNESIUM 2.3 mg/dL (1.8-2.4)
[2025-01-05 17:45] LABS: CREATININE 0.8 mg/dL (0.55-1.3)
[2025-01-05 17:47] LABS: BILIRUBIN,TOTAL 0.6 mg/dL (0.2-1); TOT PROT 7.7 g/dl (6.4-8.2)
[2025-01-05] MEDS: PANTOPRAZOLE SODIUM 40 MG VIAL IVPUSH ONE (19:00)
[2025-01-05] MEDS: FAMOTIDINE 20 MG/50 ML IVPB 20 MG/50 ML MG IVPB ONE (19:00)
[2025-01-05] MEDS: POTASSIUM CHLORIDE 40 MEQ in SODIUM CHLORIDE 1,000 ML IV SCH (22:29)
[2025-01-05 22:36] LABS: PH,URINE 5.5 (5.0-8.0); URINE APPEARANCE CLEAR; URINE BILIRUBIN NEGATIVE (NEGATIVE); URINE COLOR YELLOW; URINE GLUCOSE (UA) NEGATIVE (NEGATIVE); URINE KETONE NEGATIVE (NEGATIVE); URINE PROTEIN TRACE (NEGATIVE); URINE UROBILINOGEN 0.2 mg/dL (0.2-1.0)
[2025-01-05 22:37] LABS: URINE LEUK ESTERASE NEGATIVE (NEGATIVE); URINE NITRITE POSITIVE (NEGATIVE)
[2025-01-05] MEDS ORDERED: PIPERACILLIN/TAZOB 3.375 GM 3.375 GM in DEXTROSE 5%-WATER - 50 ML IVPB SCH (23:15)
[2025-01-05 23:51] VITALS: BMI 28.3
[2025-01-06] MEDS: PIPERACILLIN/TAZOB 3.375 GM 3.375 GM in DEXTROSE 5%-WATER - 50 ML IVPB SCH (00:12)
[2025-01-06 07:56] LABS: HEMATOCRIT 37.7 % (34.1-44.9); HEMOGLOBIN 12.1 g/dL (11.2-15.7); MCHC 32.1 g/dl (32.2-35.5); MEAN CELL VOLUME 93.8 fl (79.4-94.8); MEAN PLT VOLUME 10.1 fl (9.4-12.3); PLATELET COUNT 243 x10^3/uL (182-369); RDW 12.8 % (12.4-16.6)
[2025-01-06 08:14] LABS: POTASSIUM 4.3 mmol/L (3.5-5.1)
[2025-01-06 08:30] LABS: CALCIUM 8.1 mg/dL (8.5-10.1)
[2025-01-06 08:31] LABS: BLOOD UREA NITROGEN 12.8 mg/dL (7-18)
[2025-01-06 08:34] LABS: CREATININE 0.7 mg/dL (0.55-1.3)
[2025-01-06 08:35] LABS: BILIRUBIN,TOTAL 0.6 mg/dL (0.2-1); TOT PROT 6.1 g/dl (6.4-8.2)
[2025-01-06] MEDS: PANTOPRAZOLE SODIUM 40 MG VIAL IVPUSH SCH (09:33)
[2025-01-06] MEDS: SODIUM CHLORIDE 1,000 ML IV SCH (09:33)
[2025-01-06] MEDS ORDERED: FUROSEMIDE 20 MG TABLET (FP) PO SCH (10:00)
[2025-01-06 19:48] LABS: EPI CELLS 24 /uL (0-25.1); HYALINE CASTS 2 /uL (0-3.1); URINE APPEARANCE CLOUDY; URINE BACTERIA 29 /uL (0-1359); URINE BILIRUBIN NEGATIVE (NEGATIVE); URINE COLOR YELLOW; URINE GLUCOSE (UA) NEGATIVE (NEGATIVE); URINE KETONE NEGATIVE (NEGATIVE); URINE LEUK ESTERASE 3+ (NEGATIVE); URINE NITRITE NEGATIVE (NEGATIVE); URINE PROTEIN TRACE (NEGATIVE); URINE RBC 40 /uL (0-23.9); URINE UROBILINOGEN 0.2 mg/dL (0.2-1.0)
[2025-01-07 07:06] LABS: HEMATOCRIT 35.3 % (34.1-44.9); HEMOGLOBIN 11.6 g/dL (11.2-15.7); MCHC 32.9 g/dl (32.2-35.5); MEAN CELL VOLUME 92.7 fl (79.4-94.8); MEAN PLT VOLUME 9.9 fl (9.4-12.3); PLATELET COUNT 230 x10^3/uL (182-369); RDW 12.5 % (12.4-16.6)
[2025-01-07 07:34] LABS: POTASSIUM 3.7 mmol/L (3.5-5.1)
[2025-01-07 07:58] LABS: BLOOD UREA NITROGEN 10.6 mg/dL (7-18); CALCIUM 8.2 mg/dL (8.5-10.1); MAGNESIUM 1.9 mg/dL (1.8-2.4)
[2025-01-07 08:01] LABS: CREATININE 0.7 mg/dL (0.55-1.3); PHOSPHOROUS 3.8 mg/dL (2.5-4.9)
[2025-01-07 08:02] LABS: BILIRUBIN,TOTAL 0.7 mg/dL (0.2-1); TOT PROT 6.2 g/dl (6.4-8.2)
[2025-01-07] MEDS: CEFTRIAXONE 1 G/50 ML PREMIX 50 ML IVPB SCH (09:39)
[2025-01-07] MEDS ORDERED: ACETAMINOPHEN 325 MG TABLET (FP) PO PRN (10:31)
[2025-01-07] MEDS: TRIMETHOBENZAMIDE HCL 200MG/2ML INJ IM PRN (10:59)
[2025-01-08 07:10] LABS: HEMATOCRIT 36.9 % (34.1-44.9); HEMOGLOBIN 12.1 g/dL (11.2-15.7); MCHC 32.8 g/dl (32.2-35.5); MEAN CELL VOLUME 91.1 fl (79.4-94.8); MEAN PLT VOLUME 9.9 fl (9.4-12.3); PLATELET COUNT 245 x10^3/uL (182-369); RDW 12.3 % (12.4-16.6)
[2025-01-08 07:36] LABS: POTASSIUM 3.6 mmol/L (3.5-5.1)
[2025-01-08 07:53] LABS: ALBUMIN 3.3 g/dl (3.4-5.0); CALCIUM 8.5 mg/dL (8.5-10.1); MAGNESIUM 2.3 mg/dL (1.8-2.4)
[2025-01-08 07:56] LABS: CREATININE 0.6 mg/dL (0.55-1.3); PHOSPHOROUS 3.8 mg/dL (2.5-4.9)
[2025-01-08 07:57] LABS: BILIRUBIN,TOTAL 0.9 mg/dL (0.2-1); TOT PROT 6.3 g/dl (6.4-8.2)
[2025-01-08 15:12] VITALS: BP 101/69; PULSE 71; RESP 18; TEMP 98.4
== END 2025-01-08 17:10 | disposition home or self-care (01) ==
LOC: JER 15:55 → JERBED 19:55 → J4W 22:49
PROVIDERS: ADMIT Internal Medicine; ATTEND Physician Assistant
PROC: 3E03329 Introduction of Other Anti-infective into Peripheral Vein, Percutaneous Approach (ICD-10-PCS; principal; 2025-01-05)
PROC: 3E033GC Introduction of Other Therapeutic Substance into Peripheral Vein, Percutaneous Approach (ICD-10-PCS; 2025-01-05)
PROC: 3E023GC Introduction of Other Therapeutic Substance into Muscle, Percutaneous Approach (ICD-10-PCS; 2025-01-05)
DX: G89.18 Other acute postprocedural pain (principal); I42.2 Other hypertrophic cardiomyopathy; E78.5 Hyperlipidemia, unspecified; N39.0 Urinary tract infection, site not specified; R31.9 Hematuria, unspecified; R79.89 Other specified abnormal findings of blood chemistry; I45.81 Long QT syndrome; I24.89 Other forms of acute ischemic heart disease
CPT/HCPCS: 36415; 74177-TC; 80053; 80061; 81003; 82962; 83605; 83690; 83735; 83880; 84100; 84484; 85025; 85027; 85610; 85730; 86850; 86900; 86901; 87086; 93005; 93010; 93306-TC; 96361; 96365; 96366; 96367; 96372; 96375; 96376; 99285-25; G0378; Q9967